=== PATIENT | female | born 1980 | race Caucasian/White ===

== ENCOUNTER 2019-02-10 07:54 | Emergency (ER) | payer OTHER ==
--- NOTE | 2019-02-10 08:20 | ED Physician Documentation ---
Abdominal Pain - HISTORIAN Historian: patient - HPI Chief Complaint: Abdominal Pain Additonal Information: Patient is a 38-year-old female who presents to the ER with c/o abdominal pain (umbilical region) that started around midnight last night. She ate around 18:00 last night (meatloaf/mashed potatoes)- describes pain as dull and occasionally sharp- intermittent every 3 minutes or so. No fever, chills, nausea, vomiting or diarrhea. History of alcohol abuse- last used in September. History of IV drug use. She states that she is homeless and lives at the [facility]. Onset: hours (Started last night around midnight) Duration: waxing, waning Timing: still present Context: other (Lives at [facility]). denies: out of country travel, bad fo od Severity: moderate Quality: dull, stabbing Associated Symptoms: sweating Exacerbated by: nothing Relieved by: remaining still - ROS CONST: no problems GI/: none CVS/RESP: none EYES/ENT: none MS/SKIN/LYMPH: none NEURO/PSYCH: none - SOCIAL HX Smoking History: less than 1 pack/day Alcohol Use: heavy (last used in Sep. Use to drink a pint a day since 2011) Drug Use: methamphetamines (IV drug user- states she last used in 2013) - FAMILY HX Family History: none - PAST HX Past History: GERD, other (Bipolar, depression, mood disorder, ) Ischemic Bowel Risk Factors: none Other History: hypertension Surgeries/Procedures: other (T & A, CTR) Immunizations: UTD Home Medications: Ambulatory Orders Medication Instructions Recorded Buspirone HCl [Buspar] 10 mg PO TID PRN 02/10/19 Cetirizine HCl [Zyrtec] 10 mg PO DAILY 02/10/19 Gabapentin 400 mg PO TID 02/10/19 [place] Carbonate 300 mg PO TID 02/10/19 Naltrexone Microspheres [Vivitrol] 380 mg IM MONTH 02/10/19 Ranitidine HCl [Acid Plaster Helper] 150 mg PO DAILY 02/10/19 Allergies/Adverse Reactions: Allergies Allergy/AdvReac Type Severity Reaction Status Date / Time quetiapine fumarate AdvReac Joint Pain Verified 02/10/19 08:32 [From Seroquel] - VITAL SIGNS Vital Signs: Vital Signs Temp Pulse Resp BP Pulse Ox 97.5 F L 85 21 164/109 95 06/29/19 07:54 02/10/19 07:54 02/10/19 07:54 02/10/19 07:54 02/10/19 07:54 - REVIEWED ASSESSMENTS Nursing Assessment Reviewed: Yes Vitals Reviewed: Yes Progress - Progress Progress: 0930- patient resting comfortably in bed- no acute distress- discussed lab and CT results- pt voiced understanding ED Results Lab/Radiology - Lab Results Lab Results: Lab Results 02/10/19 02/10/19 08:15 08:15 WBC 10.30 K/ul K/ul (4.00-12.00) RBC 4.15 M/ul M/ul (3.90-5.20) Hgb 13.1 g/dL g/dL (11.5-16.0) Hct 39.5 % % (34.5-46.5) MCV 95.0 fl fl (80.0-100.0) MCH 31.6 pg pg (28.0-34.0) MCHC 33.2 g/dL g/dL (30.0-36.0) RDW 13.5 % % (11.3-14.3) Plt Count 228 K/mm3 K/mm3 (130-400) Seg Neutrophils % 75 % % (39-79) Lymphocytes % 15 % L % (16-50) Monocytes % 2 % % (0-11) Eosinophils % 8 % H % (0-7) Platelet Estimate Est. agrees w/plt ct Plt Morphology Comment Normal (NORMAL) RBC Morph Comment Normal (NORMAL) Sodium 139 mmol/L mmol/L (137-145) Potassium 4.1 mmol/L mmol/L (3.5-5.1) Chloride 106 mmol/L mmol/L (98-107) Carbon Dioxide 28 mmol/L mmol/L (22-30) BUN 10 mg/dL mg/dL (7-17) Creatinine 0.63 mg/dL mg/dL (0.52-1.04) Estimated Creat Clear 259 Est GFR ( Amer) > 60 (60 - ) Est GFR (Non-Af Amer) > 60 (60 - ) Glucose 121 mg/dL H mg/dL (74-106) Calcium 9.8 mg/dL mg/dL (8.4-10.2) Total Bilirubin 0.5 mg/dL mg/dL (0.2-1.3) AST 86 U/L H U/L (15-46) ALT 101 U/L H U/L (13-69) Alkaline Phosphatase 351 U/L H U/L (38-126) Total Protein 7.1 g/dL g/dL (6.3-8.2) Albumin 4.0 g/dL g/dL (3.5-5.0) Lipase 62 U/L U/L (23-300) Patient is aware of elevated liver enzymes- improved list visit one week ago- denies alcohol use - Radiology Radiology Impressions: CT OF ABDOMEN AND PELVIS FINDINGS: The aorta is normal in caliber. The visible lung bases are clear. The heart size is normal. The liver enhances homogeneously. The gallbladder appears normal. The intrahepatic and extrahepatic bile ducts are nondilated. The spleen enhances homogeneously. The pancreas and adrenal glands are normal. The kidneys enhance symmetrically. There is no evidence of renal calculus or hydronephrosis. The distal esophagus and stomach appear normal. The small bowel and colon are normal in caliber without evidence of wall thickening or obstruction. The appendix appears normal. No free air or free fluid is identified in the abdomen. There is no abdominal lymphadenopathy. The urinary bladder is distended with fluid and appears normal. The uterus appears normal. No free fluid is seen in the pelvis. Bone windows demonstrate no suspicious lytic or blastic lesions. The visible osseous structures are intact. IMPRESSION: 1. No acute process identified in the abdomen or pelvis. - Orders Orders: ED Orders Category Date Time Status CT ABD & PELVIS W/ CON Stat Exams 02/10/19 Taken CBC/PLATELET/DIFF Stat Lab 02/10/19 08:15 Completed CMP Stat Lab 02/10/19 08:15 Completed LIPASE Stat Lab 02/10/19 08:15 Completed URINALYSIS Routine Lab 02/10/19 Ordered Abdominal Pain Physical Exam - Physical Exam General Appearance: alert, mild distress EENT: eye inspection normal, ENT inspection normal, no signs of dehydration, DEMETRIUS NECK: normal inspection, supple RESPIRATORY: chest non-tender, wheezes (smoker) CVS: heart sounds normal, equal pulses ABDOMEN: soft, normal bowel sounds, no distension, tenderness (mid abdomen) SKIN: normal color (sweaty) EXTREMITIES: non-tender NEURO: oriented X3, CN's nml as tested, motor nml, sensation nml, mood/affect nml, cognition normal Vital Signs: Vital Signs Temp Pulse Resp BP Pulse Ox 97.5 F L 85 21 164/109 95 02/10/19 07:54 02/10/19 07:54 02/10/19 07:54 02/10/19 07:54 02/10/19 07:54 Discharge Clincal Impression: Abdominal pain Referrals: Primary Doctor,No [Primary Care Provider] - 2 Days Additional Instructions: Increase water intake Frequent ambulation May take Miralax daily for constipation Take Omeprazole daily Condition: Good Disposition: 01 HOME, SELF-CARE Decision to Admit: NO Decision Time: 09:32
[2019-02-10 08:31] LABS: PLT EST. EST. AGREES W/PLT CT; SEGMENTED NEUTROPHILS % 75 % (39-79)
[2019-02-10 08:35] LABS: eGFR (Non-African) > 60
[2019-02-10 09:38] VITALS: BP 148/79
--- NOTE | 2019-02-10 13:30 | Diagnostic Imaging Report ---
HARLEY EASTMAN [facility] [id number] [facility] [address] [address] Report Submission Date: Feb 10, 2019 9:25:23 AM CDT Patient Study Name: IZZY SUN Date: Feb 10, 2019 9:00:29 AM CDT Modality Type: CT\SR Gender: F Description: CT ABD/PELV W/ CON : 84 Institution: [facility] Physician: HARLEY EASTMAN EXAMINATION: CT abdomen and pelvis with contrast HISTORY: PT states abdominal pain (Hx) TECHNIQUE: CT of the abdomen and pelvis was performed with contrast according to standard protocol. COMPARISON: None FINDINGS: The aorta is normal in caliber. The visible lung bases are clear. The heart size is normal. The liver enhances homogeneously. The gallbladder appears normal. The intrahepatic and extrahepatic bile ducts are nondilated. The spleen enhances homogeneously. The pancreas and adrenal glands are normal. The kidneys enhance symmetrically. There is no evidence of renal calculus or hydronephrosis. The distal esophagus and stomach appear normal. The small bowel and colon are normal in caliber without evidence of wall thickening or obstruction. The appendix appears normal. No free air or free fluid is identified in the abdomen. There is no abdominal lymphadenopathy. The urinary bladder is distended with fluid and appears normal. The uterus appears normal. No free fluid is seen in the pelvis. Bone windows demonstrate no suspicious lytic or blastic lesions. The visible osseous structures are intact. IMPRESSION: 1. No acute process identified in the abdomen or pelvis. Electronically signed on Feb 10, 2019 9:25:23 AM CDT by: Joe CAMPOS
== END 2019-02-10 09:37 | disposition home or self-care (01) ==
LOC: ED 07:54
DX: R10.9 Unspecified abdominal pain (principal)
CPT/HCPCS: 74177; 80053; 83690; 85025; 96372; 99282; Q9967; S1016